=== PATIENT | male | born 2000 | race Caucasian/White ===

== ENCOUNTER 2023-07-09 16:48 | Emergency (ER) | payer SELFPAY ==
--- NOTE | ~2023-07-09 | XR_ITS ---
AP and oblique views of the right ribs, and PA chest radiograph Clinical History: Pain Findings: No rib fracture is seen. Osseous alignment is anatomic. Lungs are clear, without focal cons olidation or pleural effusion. Cardiomediastinal contour is within normal limits. Soft tissues are un remarkable. Impression: No rib fracture is seen. Clear lungs. Reviewed, dictated and finalized at [facility]. [employer] Impression: No rib fracture is seen. Clear lungs.
[2023-07-09 16:53] VITALS: BP 145/55; PULSE 83; RESP 18; TEMP 36.6; O2SAT 100
--- NOTE | 2023-07-09 17:16 | ED.FALL ---
HPI - Fall General Chief Complaint: GI Bleed Stated Complaint: black stool Time Seen by Provider: 07/09/23 17:01 Source: patient and family ( mother) Mode of arrival: ambulatory Limitations: no limitations History of Present Illness HPI Narrative: this is a 23-year-old male presents after sustaining a fall last night due to the ice now. He landed his right side is not having back pain and right-sided rib pain. He did mention in triage that he knows of his stools or black. He denies any abdominal pain, nausea, vomiting, diarrhea, constipation, or frankly bloody stools. he said his stool this morning was formed, not lose or tarry. This is 1st episode that he noticed. This has never happened before. He is not on iron supplementation. He is not having shortness of breath. He is asking about a work note. 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 HEAD: Normocephalic, atraumatic. EYES: Non injected, non icteric ENT: Nares clear, no rhinorrhea or epistaxis. NECK: Supple. CHEST: Clear to auscultation bilaterally. No respiratory distress. Speaking in full sentences. Mild tenderness to palpation along right ribs but otherwise without Subcutaneous emphysema, obvious bony deformity. HEART: Regular rate and rhythm. . Rectal/ABDOMEN: Soft, nondistended. No tenderness to palpation. rectal exam performed and was w/o hemorrhoids, normal spincter tone , no tenderness of masses. Dark but formed stool on exam. Fecal occult negative. EXTREMITIES: Normal range of motion. No edema. SKIN: Warm, dry, no rash. NEURO: No focal deficits. Alert and oriented x3. PSYCH: Normal mood and affect. Course Vital Signs Vital signs: Vital Signs Temperature 97.8 F 07/09/23 16:53 Pulse Rate 83 07/09/23 16:53 Respiratory Rate 18 07/09/23 16:53 Blood Pressure 145/55 H 07/09/23 16:53 Pulse Oximetry 100 07/09/23 16:53 Temperature 97.8 F 07/09/23 16:53 Pulse Rate 83 07/09/23 16:53 Respiratory Rate 18 07/09/23 16:53 Blood Pressure 145/55 H 07/09/23 16:53 Pulse Oximetry 100 07/09/23 16:53 MDM - Fall MDM Narrative Medical decision making narrative: The patient presents with pain along his right chest/ ribs after sustaining a fall while walking the snow/ ice last evening. He incidentally noted that his stool was dark in triage. I suspect that patient's darker colored stool still represents within normal range the appearance of stool in the absence of any abdominal pain, nausea, vomiting, hematochezia, constipation, or diarrhea. However, out of an abundance of caution we did perform a fecal occult test and it was negative. We did obtain plain film imaging for ribs but negative for fracture or pneumothorax. Has acetaminophen and ibuprofen at home and not in need of prescription for refills. he is discharged in stable condition with return precautions. He is also provided a work note as requested. Differential Diagnosis Differential diagnosis: Likely other (rib fracture, pneumothorax, rib contusion) Imaging Data Radiologist's impression: Impressions Ribs w/Chest X-Ray 07/09/23 17:35 Impression: No rib fracture is seen. Clear lungs. Discharge Plan Discharge Clinical Impression: F
[2023-07-09] MEDS: ACETAMINOPHEN 325 MG TABLET 650 MG PO (17:30)
[2023-07-09] MEDS: IBUPROFEN 600 MG TABLET PO (17:31)
== END 2023-07-09 18:32 | disposition home or self-care (01) ==
PROVIDERS: Emergency Provider Student in an Organized Health Care Education/Training Program
DX: S20.211A Contusion of right front wall of thorax, initial encounter (principal); W00.0XXA Fall on same level due to ice and snow, initial encounter
CPT/HCPCS: 71101; 99283; A9270